=== PATIENT | male | born 1975 | race African-American/Black ===

== ENCOUNTER 2017-03-02 00:57 | Emergency (ER) | payer OTHER ==
[~2017-03-02] VITALS: Ht 172.7 cm; Wt 86.5 kg
[~2017-03-02 00:57] MED LIST: HYD25 PO
[2017-03-02 01:22] VITALS: Ht 172.7 cm; Wt 86.5 kg
--- NOTE | 2017-03-02 02:55 | ERD ---
ER Documentation Chief Complaint Date/Time DATE: 03/02/17 TIME: 02:51 Chief Complaint BLEEDING FROM HEAD LACERATION 30 MINUTES AGO S/P HEAD LACERATION HPI 41-year-old male presents here in emergency department for a wound check of his head laceration, it bleeds on and off, as dripping blood 30 minutes prior to arrival, it. Right now it stopped bleeding. Patient had johnny and sutures placed on it. Patient denies any re-trauma on affected area. Patient does not have any fever or chills. Patient was given antibiotics to prevent infection of affected area which he started today.patient states that the pain has improved, sharp pain 3/10 scale, is worse upon touching the area. ROS All systems reviewed and are negative except as per history of present illness. Medications Home Meds Active Scripts Hydrochlorothiazide* (Hydrochlorothiazide*) 25 Mg Tab, 50 MG PO DAILY, #30 TAB Prov:CARLOS WINSTON MD 11/23/15 Allergies Allergies: Coded Allergies: No Known Drug Allergy (Verified Allergy, Unknown, 11/23/15) PMhx/Soc Medical and Surgical Hx: pt denies Medical Hx, pt denies Surgical Hx History of Surgery: No (DENIES) Hx Neurological Disorder: No (DENIES) Hx Respiratory Disorders: No Hx Cardiac Disorders: No Hx Psychiatric Problems: No Hx Miscellaneous Medical Probl: Yes (HYPERTENSION) Hx Alcohol Use: Yes (DRINKS BEER SOMETIMES) Hx Substance Use: Yes (MARIJUANA) Hx Tobacco Use: Yes Smoking Status: Never smoker FmHx Family History: No coronary disease, No diabetes, No other Physical Exam Vitals Vital Signs Date Time Temp Pulse Resp B/P Pulse Ox O2 Delivery O2 Flow Rate FiO2 03/02/17 01:22 99.9 91 17 151/95 98 Physical Exam GENERAL: The patient is well developed and appropriate for usual state of health, in no apparent distress. CHEST: Clear to auscultation bilaterally. There are no rales, wheezes or rhonchi. HEART: Regular rate and rhythm. No murmurs, clicks, rubs or gallops. No S3 or S4. ABDOMEN: Soft, nontender and nondistended. Good bowel sounds. No rebound or guarding. No gross peritonitis. No gross organomegaly or masses. No Elias sign or McBurney point tenderness. BACK: No midline or flank tenderness. EXTREMITIES: Equal pulses bilaterally. There is no peripheral clubbing, cyanosis or edema. No focal swelling or erythema. Full range of motion. Grossly neurovascularly intact. NEURO: Alert and oriented. Cranial nerves 2-12 intact. Motor strength in all 4 extremities with 5/5 strength. Sensation grossly intact. Normal speech and gait. SKIN: noted johnny in place in the scalp, also sutures are in place, bleeding is controlled at this time. There is no apparent rash or petechia. The skin is warm and dry. HEMATOLOGIC AND LYMPHATIC: There is no evidence of excessive bruising or lymphedema. No gross cervical, axillary, or inguinal lymphadenopathy. Procedures/MDM Medical decision making: Patient's symptoms most likely consistent with a laceration wound, most likely the johnny removed and bleeds, it was repaired without any difficulty. No symptoms of any neurovascular compromise. Disposition: Home. Condition. Stable Prescription continue antibiotics given Instructions: Patient is advised to take medications as prescribed. Patient was advised to have wound checked in 2 days and suture/ staple removal in 7-10 days. Patient is advised that if there are signs and symptoms of infection, redness, swelling, fever or chills, worsening symptoms to return to emergency room immediately. Otherwise, patient can follow up with primary care doctor in 2 days for reevaluation of symptoms. Departure Diagnosis: Primary Impression: Visit for wound check Condition: Stable Patient Instructions: Wound Care Additional Instructions: continue antibiotics, avoid touching area MARJ ANDRADE NP Mar 02, 2017 02:55
== END 2017-03-02 02:42 | disposition home or self-care (01) ==
LOC: FTE 00:57
DX: Z48.01 Encounter for change or removal of surgical wound dressing (principal); I10 Essential (primary) hypertension
CPT/HCPCS: 99281

== ENCOUNTER 2017-03-09 00:03 | Emergency (ER) | payer OTHER ==
[~2017-03-09] VITALS: Ht 177.8 cm; Wt 90.0 kg
[2017-03-09 00:11] VITALS: Ht 177.8 cm; Wt 90.0 kg
[2017-03-09] MEDS ORDERED: KETOROLAC 60 MG INJ IM STA (01:58)
--- NOTE | 2017-03-09 02:33 | ERD ---
ER Documentation Chief Complaint Date/Time DATE: 03/09/17 TIME: 02:27 Chief Complaint wound check head area HPI 41-year-old male presents in emergency department for a wound check, patient supposed to have johnny removed tonight in the scalp, patient continues to bleed. Patient had a hematoma in the scalp, has been bleeding on and off. Patient does not have any fever or chills. Patient does not have any other symptoms. Patient does not have any pain. Patient does not have any numbness tingling, any recent injury, changes in balance or memory, numbness or tingling , changes in vision, headache. ROS All systems reviewed and are negative except as per history of present illness. Medications Home Meds Active Scripts Hydrochlorothiazide* (Hydrochlorothiazide*) 25 Mg Tab, 50 MG PO DAILY, #30 TAB Prov:CARLOS WINSTON MD 11/23/15 Allergies Allergies: Coded Allergies: No Known Drug Allergy (Verified Allergy, Unknown, 11/23/15) PMhx/Soc History of Surgery: No (DENIES) Hx Neurological Disorder: No (DENIES) Hx Respiratory Disorders: No Hx Cardiac Disorders: No Hx Psychiatric Problems: No Hx Miscellaneous Medical Probl: Yes (HYPERTENSION) Hx Alcohol Use: Yes (DRINKS BEER SOMETIMES) Hx Substance Use: Yes (MARIJUANA) Hx Tobacco Use: Yes Smoking Status: Current some day smoker FmHx Family History: No coronary disease, No diabetes, No other Physical Exam Vitals Vital Signs Date Time Temp Pulse Resp B/P Pulse Ox O2 Delivery O2 Flow Rate FiO2 03/09/17 00:11 97.8 61 20 158/90 100 Physical Exam GENERAL: The child is well developed and nourished for age, interactive and vigorous appearing. No acute distress and nontoxic. HEENT: Atraumatic. Ears: Normal tympanic membrane, no erythema or bulging. No ear canal swelling. No ear discharge. Nose: normal nasal turbinates, no erythema or swelling. Normal nasal discharge. Throat: oropharynx clear. No tonsillar swelling or tonsillar exudates. No lymphadenopathy. LUNGS: Clear to auscultation. No accessory muscle use. No wheezing, no crackles. No signs or symptoms of respiratory distress. HEART: Regular rate and rhythm. No murmurs, clicks, rubs or gallops. ABDOMEN: Soft, nontender and nondistended. Bowel sounds positive. No rebound or guarding. No gross peritoneal signs. No Elias or McBurney point tenderness. No gross masses. BACK: No midline tenderness, no costovertebral tenderness. EXTREMITIES: There is no peripheral cyanosis or edema. No focal pain or notable trauma. Full range of motion. Good capillary refill. NEURO: The patient moves all 4 extremities with 5/5 strength. Cranial nerves are grossly intact. Normal mental status for age. SKIN: Noted johnny in place in the scalp, draining some bright red blood, no tenderness on palpation, no purulent discharge noted, noted some swelling in the scalp, consistent with hematoma.There is no apparent rash, petechiae, erythema or swelling. Good skin turgor. Results 24 hrs Current Medications Medications (Trade) Dose Ordered Sig/Stoney Route PRN Reason Start Time Stop Time Status Last Admin Dose Admin Ketorolac Tromethamine (Toradol) 60 mg ONCE STAT IM 03/09/17 01:58 03/09/17 02:03 DC toradol was not given here in emergency dept Procedure note: After patient's verbal consent, Surgicel was applied on the wound to stop the bleeding, tolerated procedure well, pressure dressing was applied on affected area, the johnny were not removed it seems patient's wound is open. I discussed this case with attending physician, Dr. Borges, no other procedures or medications necessary at this time, will eventually clot and heal on its on Procedures/MDM Medical decision making: Patient was here for a wound check, the wound is still open, no symptoms of any infection, there is a hematoma and is draining from the scalp Towards the open wound. No symptoms of any purulent discharge. no symptoms of sepsis at this time. No symptoms of any neurological progress. I discussed this case with my attending physician, Dr. Borges, states that it will eventually get reabsorbed and clotted on its own. No further management or medication necessary at this time. No other active bleeding noted. Symptoms of any anemia. Patient was advised to apply ice on affected area, apply pressure dressing on affected area, return to emergency department for any worsening symptoms. Rx for KEflex to prevent infection Disposition: Home. Stable. Departure Diagnosis: Primary Impression: Encounter for wound re-check Additional Impression: Scalp hematoma Encounter type: subsequent encounter Qualified Code: S00.03XD - Hematoma of scalp, subsequent encounter Condition: Stable MARJ ANDRADE SIMS T. TAKER OUT Mar 09, 2017 02:33
[2017-03-09 04:10] VITALS: BP 157/88; PULSE 72; RESP 20; TEMP 97.8
== END 2017-03-09 04:11 | disposition home or self-care (01) ==
LOC: FTE 00:03
DX: Z48.01 Encounter for change or removal of surgical wound dressing (principal); S00.03XD Contusion of scalp, subsequent encounter; F17.210 Nicotine dependence, cigarettes, uncomplicated; I10 Essential (primary) hypertension; X58.XXXD Exposure to other specified factors, subsequent encounter
CPT/HCPCS: 99283